=== PATIENT | male | born 1980 | race Caucasian/White ===

== ENCOUNTER 2018-12-19 15:08 | Emergency (ER) | payer MEDICAID ==
[~2018-12-19] VITALS: Ht 175.3 cm; Wt 102.1 kg
[2018-12-19 15:43] VITALS: BP_SYST 136
[2018-12-19] MEDS ORDERED: IBUPROFEN 800 MG TABLET PO ONE (16:15)
[2018-12-19 16:59] VITALS: BP_SYST 124
== END 2018-12-19 16:58 | disposition home or self-care (01) ==
LOC: SED 15:08
DX: S93.401A Sprain of unspecified ligament of right ankle, initial encounter (principal); F17.210 Nicotine dependence, cigarettes, uncomplicated; X50.9XXA Other and unspecified overexertion or strenuous movements or postures, initial encounter; Y93.51 Activity, roller skating (inline) and skateboarding; Y92.89 Other specified places as the place of occurrence of the external cause; Y99.8 Other external cause status
CPT/HCPCS: 99283

== ENCOUNTER 2019-08-14 10:45 | Inpatient (IN) | payer SELFPAY ==
[~2019-08-14] VITALS: Ht 175.3 cm; Wt 104.3 kg
[2019-08-14 10:50] VITALS: BP_SYST 141
--- NOTE | 2019-08-14 10:55 | NUR ---
PATIENT ASSESSMENT BY ERMD IN TRIAGE
--- NOTE | 2019-08-14 11:05 | NUR ---
PATIENT RETURNED TO WAITING ROOM PENDING DISPOSITION
[2019-08-14 11:08] LABS: BILIRUBIN,URINE 3+ (NEGATIVE); BLOOD, URINE NEGATIVE (NEGATIVE); COLOR,URINE BROWN (YELLOW); GLUCOSE,URINE TRACE (NEGATIVE); KETONES,URINE 1+ (NEGATIVE); LEUKOCYTE ESTERASE ,URINE TRACE (NEGATIVE); NITRITE, URINE POSITIVE (NEGATIVE); PH,URINE 6.5 (5.0-8.0); PROTEIN URINE 2+ (NEGATIVE)
[2019-08-14 11:17] LABS: CLARITY/URINE HAZY (CLEAR)
[2019-08-14 11:22] LABS: BARBITURATE, URINE NEGATIVE (NEG <=200); BENZODIAZEPINE, URINE NEGATIVE (NEG <=150); CANNABINOID, URINE POSITIVE (NEG <=50); COCAINE, URINE NEGATIVE (NEG <=150); METHAMPHETAMINES SCREEN,URINE NEGATIVE (NEG <=500); OPIATE, URINE NEGATIVE (NEG <=100); PHENCYCLIDINE SCREEN,URINE NEGATIVE (NEG <=25); UR TRICYCLIC ANTIDEPRESSANTS NEGATIVE (NEG <=300); URINE AMPHETAMINE NEGATIVE (NEG <=500); URINE METHADONE NEGATIVE (NEG <=200); URINE OXYCODONE SCREEN NEGATIVE (NEG <=100); URINE PROPOXYPHENE SCREEN NEGATIVE (NEG <=300)
[2019-08-14 11:23] LABS: BASOPHILS % (AUTO) 0.6 % (0.0-2.0); EOSINOPHILS # (AUTO) 0.2 K/uL (0.0-0.4); EOSINOPHILS % (AUTO) 2.6 % (0.0-4.0); HEMATOCRIT 48.8 % (36-54); HEMOGLOBIN 16.3 g/dL (14.0-18.0); LYMPHOCYTES # (AUTO) 1.9 K/uL (1.0-5.5); LYMPHOCYTES % (AUTO) 31.6 % (20.5-51.5); MEAN CORPUSCULAR HEMOGLOBIN 29 pg (27-31); MEAN CORPUSCULAR HGB CONC 33 % (32-36); MEAN CORPUSCULAR VOLUME 88 fL (79.0-98.0); MONOCYTES # (AUTO) 0.7 K/uL (0.0-1.0); NEUTROPHILS # (AUTO) 3.1 K/uL (1.8-7.7); NEUTROPHILS % (AUTO) 53.2 % (40.0-70.0); PLATELET COUNT (AUTO) 279 K/uL (130-430); RED BLOOD CELL COUNT(AUTO) 5.56 MIL/uL (4.2-6.2); RED CELL DISTRIBUTION WIDTH 14.9 % (9.0-15.0); WHITE BLOOD COUNT (AUTO) 5.9 K/uL (4.8-10.8)
[2019-08-14 11:25] LABS: BACTERIA,URINE MODERATE /HPF (None Seen); RBC,URINE NONE SEEN /HPF (0-3); WBC,URINE 0-3 /HPF (0-3)
[2019-08-14 11:26] LABS: MUCUS,URINE 1+ /LPF (None Seen)
[2019-08-14 11:35] LABS: ANION GAP 9 (5-15); CALCIUM 8.8 mg/dL (8.4-11.0); CHLORIDE 100 mmol/L (98-107); CREATININE 1.23 mg/dL (0.55-1.30); GLUCOSE 134 mg/dL (70-99); POTASSIUM 3.6 mmol/L (3.5-5.1); SODIUM SERUM 135 mmol/L (136-145); UREA NITROGEN, BLOOD 7 mg/dL (8-21)
[2019-08-14 11:41] LABS: GFR AFRICAN AMERICAN 85 mL/min (>90)
[2019-08-14 11:45] LABS: CHOLESTEROL 117 mg/dL (<200); HDL CHOLESTEROL 17 mg/dL (>45); LDL CHOLESTEROL 66 mg/dL (<100); TOTAL BILIRUBIN 4.8 mg/dL (0.0-1.0); TRIGLYCERIDES 164 mg/dL (30-150)
[2019-08-14 11:58] LABS: ALANINE AMINOTRANSFERASE 2104 U/L (12-78); ASPARTATE AMINOTRANSFERASE 1259 U/L (10-37)
[2019-08-14 12:01] LABS: ALCOHOL, BLOOD < 3 mg/dL (<10)
[2019-08-14] MEDS ORDERED: D5/0.45 NS 1,000 ML IV SCH (12:30)
--- NOTE | 2019-08-14 12:30 | NUR ---
ORDERS RECEIVED FROM DR. Joann GUTHRIE FOR ADMISSION. ORDERS ENTERED BY RN. WILL CALL FOR BED ASSIGNMENT.
--- NOTE | 2019-08-14 12:32 | NUR ---
CALM, ALERT, RESP UNLABORED, RECEIVED AND IN ROOM. DENIES CP/SOB DENIES N,V,D.
--- NOTE | 2019-08-14 12:56 | NUR ---
NO HOME MEDS
--- NOTE | 2019-08-14 12:57 | NUR ---
BELONGINGS LIST COMPLETED
--- NOTE | 2019-08-14 13:31 | NUR ---
Patient will be admitted to care of MD. Admitted to M/S unit. Will go to room 100B. Belongings list completed. Complete and up to date summary report printed. SBAR report to be given at bedside with opportunity for questions.
--- NOTE | 2019-08-14 13:40 | NUR ---
ADMISSION: Received from ER on a gurney with the diagnosis of Alcoholic hepatitis. Oriented to room, call light within reach.
[2019-08-14 13:52] VITALS: BP_SYST 146
--- NOTE | 2019-08-14 14:00 | NUR ---
Notes- In bed, denies any chest pain or shortness of breath. IVF infusing well. Oriented to room set up, call light. Update on plan of care, consults. will monitor.
--- NOTE | 2019-08-14 14:01 | NUR ---
CONSULTATION PAGED/CALLED Reason for Consultation: [] ALCOHOLIC HEPATITIS Person Who was Notified: [] [place] Consulting Physician: [] DR Ailin DAVIS Electronic Pagination System Operator Specialty: [] GI Ordering Physician: [] DR Ailin GUTHRIE
[2019-08-14 15:49] VITALS: BP_SYST 146
--- NOTE | 2019-08-14 16:00 | NUR ---
Notes- In bed, watching tv. Denies any pain or discomfort. No acute distress noted.
--- NOTE | 2019-08-14 16:23 | NUR ---
MD rounds Seen by Dr. Figueroa at bedside.
--- NOTE | 2019-08-14 18:34 | NUR ---
Notes- In bed resting, no distress noted. Pt eats when he came in. Informed ultrasound that patients eat. Ultrasound will be done early AM.
--- NOTE | 2019-08-14 19:16 | NUR ---
OPENING NOTES Received patient, resting in bed, no distress noted. IV site patent, dressings c/d/i, IVF running. Patient refuses bed alarm after patient verbalizes use of call light and call light within reach, bed at lowest position. Will continue to monitor. Addendum: 08/15/19 at 0303 by Vasquez Luong RN Received report that patient will be NPO past midnight for ultrasound in the morning, patient is disappointed that patient has to stay overnight, but patient verbalizes understanding.
--- NOTE | 2019-08-14 20:15 | NUR ---
Went in to take vital signs and assess patient, but found IV catheter intact and disconnected from patient, tried looking for patient at cafeteria and had security look for patient outside, and patient not found. Informed charge nurse and house soup informed. Ranulfo booth MD.
--- NOTE | 2019-08-15 00:15 | NUR ---
INFORMED DR. GUTHRIE THAT PATIENT HAD ELOPED.
== END 2019-08-14 18:15 | disposition left against medical advice (07) | DRG 434 ==
LOC: SED 10:45 → SMU 12:30
PROVIDERS: ADMIT Preventive Medicine Preventive Medicine/Occupational Environmental Medicine; ATTEND Preventive Medicine Preventive Medicine/Occupational Environmental Medicine
DX: K70.10 Alcoholic hepatitis without ascites (principal); F17.210 Nicotine dependence, cigarettes, uncomplicated; F10.10 Alcohol abuse, uncomplicated; Z82.49 Family history of ischemic heart disease and other diseases of the circulatory system
CPT/HCPCS: 36415; 80053; 80061; 80074; 80307; 81000-TC; 85025; 87086; G0482